=== PATIENT | male | born 1975 | race Hispanic/Latino ===

== ENCOUNTER 2022-10-03 17:47 | Emergency (ER) | payer SELFPAY ==
[~2022-10-03] VITALS: Ht 165.1 cm; Wt 60.0 kg
[2022-10-03] MEDS ORDERED: BACTRIM DS1 TAB PO (18:37)
[2022-10-03] MEDS ORDERED: MEDDOSEPAK PO (18:37)
[2022-10-03] MEDS ORDERED: MUPIROCIN2 % EX (18:37)
[2022-10-03 20:26] VITALS: BP 110/70
== END 2022-10-03 20:44 | disposition home or self-care (01) | DRG 603 ==
LOC: ED 17:47
DX: L03.319 Cellulitis of trunk, unspecified (principal)